=== PATIENT | female | born 1955 | race Caucasian/White ===

== ENCOUNTER → 2020-05-22 12:46 | Outpatient (BNVA) | payer MEDICARE, OTHER, SELFPAY | PROVIDERS: Family Provider Family Medicine; Visit Provider Internal Medicine | DX: Z87.2 Personal history of diseases of the skin and subcutaneous tissue (principal); Z79.899 Other long term (current) drug therapy; Z11.59 Encounter for screening for other viral diseases; Z11.1 Encounter for screening for respiratory tuberculosis; K75.81 Nonalcoholic steatohepatitis (NASH); H53.8 Other visual disturbances | CPT/HCPCS: 80053; 84550; 85025; 85651; 86140; 86431; 86480; 86704; 86803; 86812; 87340; 99203 ==

== ENCOUNTER 2020-05-23 13:00 | Outpatient (CLI) | payer MEDICARE, OTHER, SELFPAY ==
--- NOTE | 2020-05-23 13:10 | XR_ITS ---
WS: [id number] AP hips. HISTORY: Chronic bilateral joint pain. COMPARISON: None. Very mild narrowing and sclerosis involving the hip joints. No fractures or bone destruction. XR/XR hip BI 2V wo/w pel [id number] IMPRESSION: Mild osteoarthritis.
--- NOTE | 2020-05-23 13:10 | XR_ITS ---
WS: [id number] RIGHT HAND: 2 VIEW(S) TECHNIQUE: PA and lateral. HISTORY: hand pain COMPARISON: None available. Mild interphalangeal joint space narrowing. No erosions or subluxation. Mild narrowing of first carpo metacarpal joint. No osteopenia. XR/XR hand RT 2V [id number] IMPRESSION: Mild osteoarthritis.
--- NOTE | 2020-05-23 13:10 | XR_ITS ---
WS: [id number] LEFT HAND: 2 VIEW(S) TECHNIQUE: PA and lateral. HISTORY: hand pain COMPARISON: 10/25/2012 No acute fracture or dislocation. Mild interphalangeal joint space narrowing. Mild arthritis at the first carpometacarpal joint. XR/XR hand LT 2V [id number] IMPRESSION: Mild osteoarthritis with no erosions.
== END 2020-05-23 13:01 | disposition home or self-care (01) ==
LOC: RADWPI 13:10
PROVIDERS: Family Provider Family Medicine; PCP Family Medicine; Visit Provider Internal Medicine
DX: M16.0 Bilateral primary osteoarthritis of hip (principal); M19.042 Primary osteoarthritis, left hand; M19.041 Primary osteoarthritis, right hand
CPT/HCPCS: 73120; 73521

== ENCOUNTER → 2020-06-05 08:33 | Outpatient (BNVA) | payer MEDICARE, OTHER, SELFPAY | PROVIDERS: Family Provider Family Medicine; PCP Family Medicine; Visit Provider Internal Medicine | DX: L40.0 Psoriasis vulgaris (principal); M25.50 Pain in unspecified joint | CPT/HCPCS: 99214 ==

== ENCOUNTER → 2020-07-25 09:33 | Outpatient (BNVA) | payer MEDICARE, OTHER, SELFPAY | PROVIDERS: Family Provider Family Medicine; PCP Family Medicine; Visit Provider Internal Medicine | DX: L40.0 Psoriasis vulgaris (principal); M79.643 Pain in unspecified hand; Z79.899 Other long term (current) drug therapy; K75.81 Nonalcoholic steatohepatitis (NASH) | CPT/HCPCS: 99214 ==

== ENCOUNTER → 2020-10-01 10:37 | Outpatient (BNVA) | payer MEDICARE, OTHER, SELFPAY | PROVIDERS: Family Provider Family Medicine; PCP Family Medicine; Visit Provider Internal Medicine | DX: L40.50 Arthropathic psoriasis, unspecified (principal); L40.0 Psoriasis vulgaris; K75.81 Nonalcoholic steatohepatitis (NASH); M25.50 Pain in unspecified joint; N28.89 Other specified disorders of kidney and ureter | CPT/HCPCS: 99214 ==

== ENCOUNTER → 2020-11-13 14:18 | Outpatient (BNVA) | payer MEDICARE, OTHER, SELFPAY | PROVIDERS: Family Provider Family Medicine; PCP Family Medicine; Visit Provider Internal Medicine | DX: M25.50 Pain in unspecified joint (principal); K75.81 Nonalcoholic steatohepatitis (NASH); L40.0 Psoriasis vulgaris | CPT/HCPCS: 99214 ==

== ENCOUNTER 2020-11-18 09:35 | Outpatient (CLI) | payer MEDICARE, OTHER, SELFPAY ==
[2020-11-18 10:05] LABS: Basophils # 0.1 10^3/uL (0.0-0.1); Basophils % 0.9 %; Eosinophils # 0.3 10^3/uL (0.0-0.8); Eosinophils % 3.5 %; Hematocrit 37.7 % (37.0-47.0); Hemoglobin 12.3 g/dL (11.5-15.3); Lymphocytes # 1.6 10^3/uL (0.8-4.8); Lymphocytes % 18.5 %; Mean Corpuscular HGB Conc 32.6 g/dL (30.0-36.0); Mean Corpuscular Volume 88.9 fL (81-99); Mean Platelet Volume 10.1 fL (7.4-10.4); Monocytes # 0.5 10^3/uL (0.2-0.9); Neutrophils # 5.92 10^3/uL (1.8-7.7); Neutrophils % 69.8 %; Nucleated Red Blood Cells % 0 %; Platelet Count 303 10^3/cmm (130-400); Red Blood Count 4.24 10^6/uL (4.1-5.3); Red Cell Distribution Width 12.5 % (12.1-15.1); White Blood Count 8.5 10^3/uL (4.0-10.0)
[2020-11-18 11:00] LABS: 25 Hydroxy Vitamin D 55 ng/mL (30-100); Alanine Aminotransferase 20 U/L (0-33); Albumin Level 4.5 g/dL (3.5-5.2); Alkaline Phosphatase 125 IU/L (35-105); Anion Gap 12.1 (5-19); Aspartate Amino Transferase 25 U/L (0-32); Blood Urea Nitrogen 18 mg/dL (8-23); Calcium 10.2 mg/dL (8.5-10.5); Carbon Dioxide 29 mmol/L (22-29); Chloride 100 mmol/L (98-107); Globulin 3.6 g/dL (1.3-4.6); Glomerular Filtration Rate 62.6 mL/min (90-130); Glucose 163 mg/dL (65-115); Osmolality Calculated 289 mOsm/kg (285-295); Potassium 4.1 mmol/L (3.5-5.1); Sodium 137 mmol/L (136-145); Total Bilirubin 0.4 mg/dL (0.15-1.2); Total Protein 8.1 g/dL (6.6-8.7)
[2020-11-18 12:20] LABS: Free T4 Free Thyroxine 1.54 ng/dL (0.82-1.77)
[2020-11-18 13:03] LABS: Calcium 9.8 mg/dL (8.5-10.5); Parathyroid Hormone 56.3 pg/mL (15-65)
== END 2020-11-18 09:36 | disposition home or self-care (01) ==
LOC: LAB 09:41
PROVIDERS: Internal Medicine; PCP Family Medicine; Visit Provider Internal Medicine
DX: E03.9 Hypothyroidism, unspecified (principal); E11.65 Type 2 diabetes mellitus with hyperglycemia; M81.0 Age-related osteoporosis without current pathological fracture; Z83.41 Family history of multiple endocrine neoplasia [MEN] syndrome
CPT/HCPCS: 36415; 80053; 82306; 82310; 83970; 84439; 84443; 85025; 99205

== ENCOUNTER 2020-11-21 09:39 | Outpatient (CLI) | payer MEDICARE, OTHER, SELFPAY ==
--- NOTE | 2020-11-21 16:15 | XR_ITS ---
WS: [id number] DEXA (DUAL ENERGY X-RAY ABSORPTIOMETRY) Bone mineral density was performed using a GO-SIM machine. HISTORY: osteoporosis history COMPARISON: None available. Left forearm BMD: 0.769 g/cm2. T score: -1.2 Z score: 0.2 Total hip BMD: Left: 0.889 g/cm2. T score: -0.9 Z score: -0.1 Right: 0.813 g/cm2. T score: -1.5 Z score: -0.7 10 year probability of a major osteoporotic fracture is 34%. XR/XR DEXA axial skeleton* [id number] IMPRESSION: OSTEOPENIA based upon the WHO classification for females.
== END 2020-11-21 09:40 | disposition home or self-care (01) ==
LOC: RADWPI 09:45
PROVIDERS: PCP Family Medicine; Visit Provider Internal Medicine
DX: M81.0 Age-related osteoporosis without current pathological fracture (principal); M85.88 Other specified disorders of bone density and structure, other site
CPT/HCPCS: 77080

== ENCOUNTER 2020-12-08 08:57 | Outpatient (CLI) | payer MEDICARE, OTHER, SELFPAY ==
--- NOTE | 2020-12-08 09:30 | US_ITS ---
WS: [id number] THYROID ULTRASOUND HISTORY: FH of MEN2, assess for nodules COMPARISON: None available. Right lobe: 3.7 cm x 1.2 cm x 1.2 cm. Volume: 2.8 cm3. Small heterogeneous coarse thyroid gland. No discrete nodule identified. No cervical chain adenopathy . Left lobe: 2.9 cm x 1.0 cm x 1.1 cm. Volume: 1.7 cm3. Small Giurgius coarse thyroid gland. No nodules are identified. No significant adenopathy. There are small benign cervical chain lymph nodes. Isthmus: 0.2 cm. US/US thyroid [id number] IMPRESSION: 1. Small coarse heterogeneous thyroid with no nodules. 2. Small cervical chain lymph nodes are negative.
== END 2020-12-08 08:58 | disposition home or self-care (01) ==
PROVIDERS: PCP Family Medicine; Visit Provider Internal Medicine
DX: E04.1 Nontoxic single thyroid nodule (principal); Z83.41 Family history of multiple endocrine neoplasia [MEN] syndrome
CPT/HCPCS: 76536

== ENCOUNTER → 2021-08-25 10:23 | Outpatient (BNVA) | payer MEDICARE, OTHER, SELFPAY | PROVIDERS: PCP Family Medicine; Visit Provider Internal Medicine | DX: E11.65 Type 2 diabetes mellitus with hyperglycemia (principal); M81.0 Age-related osteoporosis without current pathological fracture; E03.9 Hypothyroidism, unspecified; Z83.41 Family history of multiple endocrine neoplasia [MEN] syndrome; Z79.84 Long term (current) use of oral hypoglycemic drugs; Z79.4 Long term (current) use of insulin | CPT/HCPCS: 99214 ==

== ENCOUNTER → 2021-11-20 08:57 | Outpatient (BNVA) | payer MEDICARE, OTHER, SELFPAY | PROVIDERS: PCP Family Medicine; Visit Provider Internal Medicine | DX: E11.9 Type 2 diabetes mellitus without complications (principal); M81.0 Age-related osteoporosis without current pathological fracture; Z83.41 Family history of multiple endocrine neoplasia [MEN] syndrome; E03.9 Hypothyroidism, unspecified; Z79.4 Long term (current) use of insulin | CPT/HCPCS: 99214 ==

== ENCOUNTER 2022-02-24 13:33 | Oncology outpatient (recurring) (ONCR) | payer MEDICARE, OTHER, SELFPAY ==
[2022-02-24 16:45] LABS: Basophils # 0.1 10^3/uL (0.0-0.1); Basophils % 0.5 %; Eosinophils # 0.2 10^3/uL (0.0-0.8); Hematocrit 40.4 % (37.0-47.0); Hemoglobin 13.6 g/dL (11.5-15.3); Lymphocytes # 2.1 10^3/uL (0.8-4.8); Lymphocytes % 19.7 %; Mean Corpuscular HGB Conc 33.7 g/dL (30.0-36.0); Mean Corpuscular Hemoglobin 28.8 pg (28.0-34.0); Mean Corpuscular Volume 85.6 fl (81-99); Mean Platelet Volume 10.7 fL (7.4-10.4); Monocytes # 0.7 10^3/uL (0.2-0.9); Monocytes % 6.4 %; Neutrophils # 7.41 10^3/uL (1.8-7.7); Neutrophils % 70.6 %; Nucleated Red Blood Cells % 0 %; Platelet Count 253 10^3/cmm (130-400); Red Blood Count 4.72 10^6/uL (4.1-5.3); Red Cell Distribution Width 13.3 % (12.1-15.1); White Blood Count 10.5 10^3/uL (4.0-10.0)
[2022-02-24 17:00] LABS: Alanine Aminotransferase 25 U/L (0-33); Albumin Level 4.6 g/dL (3.5-5.2); Alkaline Phosphatase 107 IU/L (35-105); Anion Gap 15.3 (5-19); Aspartate Amino Transferase 26 U/L (0-32); Blood Urea Nitrogen 25 mg/dL (8-23); Calcium 9.2 mg/dL (8.5-10.5); Carbon Dioxide 25 mmol/L (22-29); Chloride 103 mmol/L (98-107); Globulin 2.9 g/dL (1.3-4.6); Glomerular Filtration Rate 49.5 mL/min (90-130); Glucose 131 mg/dL (65-115); Lactate Dehydrogenase 337 U/L (135-214); Osmolality Calculated 294 mOsm/kg (285-295); Potassium 4.3 mmol/L (3.5-5.1); Sodium 139 mmol/L (136-145); Total Bilirubin 0.3 mg/dL (0.15-1.2); Total Protein 7.5 g/dL (6.6-8.7)
[2022-02-24 17:36] LABS: LAB Peripheral Smear Sent for Review
== END 2022-02-24 23:59 | disposition home or self-care (01) ==
PROVIDERS: PCP Family Medicine; Visit Provider Internal Medicine Medical Oncology
DX: R16.1 Splenomegaly, not elsewhere classified (principal); N28.89 Other specified disorders of kidney and ureter; D49.0 Neoplasm of unspecified behavior of digestive system; Z83.41 Family history of multiple endocrine neoplasia [MEN] syndrome
CPT/HCPCS: 36415; 80053; 83615; 85025; 99204

== ENCOUNTER → 2022-03-18 13:53 | Outpatient (BNVA) | payer MEDICARE, OTHER, SELFPAY | PROVIDERS: PCP Family Medicine; Visit Provider Internal Medicine | DX: D49.0 Neoplasm of unspecified behavior of digestive system (principal); E11.9 Type 2 diabetes mellitus without complications; M81.0 Age-related osteoporosis without current pathological fracture; E03.9 Hypothyroidism, unspecified; Z83.41 Family history of multiple endocrine neoplasia [MEN] syndrome; Z79.4 Long term (current) use of insulin | CPT/HCPCS: 99214 ==

== ENCOUNTER 2022-04-01 10:06 | Outpatient (CLI) | payer MEDICARE, OTHER, SELFPAY ==
[2022-04-01 11:20] LABS: Estmated Average Glucose 143; Hemoglobin A1C 6.6 % (4.0-6.0)
[2022-04-01 11:34] LABS: 25 Hydroxy Vitamin D 36 ng/mL (30-100); Alanine Aminotransferase 26 U/L (0-33); Albumin Level 4.6 g/dL (3.5-5.2); Alkaline Phosphatase 121 IU/L (35-105); Anion Gap 16.1 (5-19); Aspartate Amino Transferase 26 U/L (0-32); Blood Urea Nitrogen 25 mg/dL (8-23); Calcium 9.7 mg/dL (8.5-10.5); Carbon Dioxide 24 mmol/L (22-29); Chloride 98 mmol/L (98-107); Chol HDL Ratio 4.37 mg/dL (0.0-4.40); Cholesterol 166 mg/dL (0-200); Globulin 3.2 g/dL (1.3-4.6); Glomerular Filtration Rate 49.5 mL/min (90-130); Glucose 268 mg/dL (65-115); HDL Cholesterol 38 mg/dL (60-100); Osmolality Calculated 292 mOsm/kg (285-295); Potassium 4.1 mmol/L (3.5-5.1); Sodium 134 mmol/L (136-145); Thyroid Stimulating Hormone 8.09 uIU/mL (0.27-4.20); Total Bilirubin 0.5 mg/dL (0.15-1.2); Total Protein 7.8 g/dL (6.6-8.7); Triglycerides 431 mg/dL (0-150)
[2022-04-01 12:45] LABS: LDL Cholesterol Direct 69 mg/dL (0-100)
[2022-04-01 12:52] LABS: Free T4 Free Thyroxine 1.17 ng/dL (0.82-1.77)
== END 2022-04-01 10:07 | disposition home or self-care (01) ==
PROVIDERS: PCP Family Medicine; Visit Provider Internal Medicine
DX: E03.9 Hypothyroidism, unspecified (principal); E11.65 Type 2 diabetes mellitus with hyperglycemia; M81.0 Age-related osteoporosis without current pathological fracture
CPT/HCPCS: 36415; 80053; 80061; 82306; 83036; 83721; 84439; 84443

== ENCOUNTER 2022-05-20 12:53 | Outpatient (CLI) | payer MEDICARE, OTHER, SELFPAY ==
[2022-05-20 14:26] LABS: Estmated Average Glucose 143; Hemoglobin A1C 6.6 % (4.0-6.0)
[2022-05-20 14:33] LABS: Anion Gap 15.2 (5-19); Blood Urea Nitrogen 26 mg/dL (8-23); Calcium 9.6 mg/dL (8.5-10.5); Carbon Dioxide 25 mmol/L (22-29); Chloride 99 mmol/L (98-107); Cholesterol 147 mg/dL (0-200); Free T4 Free Thyroxine 1.61 ng/dL (0.82-1.77); Glomerular Filtration Rate 49.5 mL/min (90-130); Glucose 149 mg/dL (65-115); HDL Cholesterol 30 mg/dL (60-100); Osmolality Calculated 288 mOsm/kg (285-295); Potassium 4.2 mmol/L (3.5-5.1); Sodium 135 mmol/L (136-145); Triglycerides 551 mg/dL (0-150)
[2022-05-20 15:35] LABS: LDL Cholesterol Direct 53 mg/dL (0-100)
[2022-05-26 17:23] LABS: TSH Receptor Binding Antibody <1.00 IU/L (< OR = 2.00)
== END 2022-05-20 12:54 | disposition home or self-care (01) ==
LOC: LAB 12:55
PROVIDERS: PCP Family Medicine; Visit Provider Internal Medicine
DX: E11.9 Type 2 diabetes mellitus without complications (principal); N28.89 Other specified disorders of kidney and ureter
CPT/HCPCS: 80048; 80061; 83036; 83516; 83721; 84439

== ENCOUNTER → 2022-05-24 08:47 | Outpatient (BNVA) | payer MEDICARE, OTHER, SELFPAY | PROVIDERS: PCP Family Medicine; Visit Provider Internal Medicine | DX: M81.0 Age-related osteoporosis without current pathological fracture (principal); E11.9 Type 2 diabetes mellitus without complications; E78.1 Pure hyperglyceridemia; E03.9 Hypothyroidism, unspecified; D49.0 Neoplasm of unspecified behavior of digestive system; L40.0 Psoriasis vulgaris; Z15.89 Genetic susceptibility to other disease; Z83.41 Family history of multiple endocrine neoplasia [MEN] syndrome; Z79.4 Long term (current) use of insulin | CPT/HCPCS: 99214 ==

== ENCOUNTER 2022-06-10 09:38 | Oncology outpatient (recurring) (ONCR) | payer MEDICARE, OTHER, SELFPAY | END 2022-06-11 23:59 | disposition home or self-care (01) | PROVIDERS: PCP Family Medicine; Visit Provider Internal Medicine Medical Oncology | DX: D05.12 Intraductal carcinoma in situ of left breast (principal); Z90.13 Acquired absence of bilateral breasts and nipples; K21.9 Gastro-esophageal reflux disease without esophagitis; M81.0 Age-related osteoporosis without current pathological fracture; N28.89 Other specified disorders of kidney and ureter; D44.7 Neoplasm of uncertain behavior of aortic body and other paraganglia; Z79.899 Other long term (current) drug therapy | CPT/HCPCS: 99214 ==

== ENCOUNTER 2022-06-22 08:36 | Outpatient (CLI) | payer MEDICARE, OTHER, SELFPAY ==
[2022-06-22] MEDS: iohexol 350 mg/mL 100 mL Btl PO (09:57)
--- NOTE | 2022-06-22 10:30 | CT_ITS ---
WS: [id number] CT ABDOMEN AND PELVIS WITH CONTRAST HISTORY: Surveillance for renal mass and for suspected IPMN TECHNIQUE: Imaging performed of the abdomen and pelvis with IV contrast. Single phase imaging of the abdomen. Coronal and sagittal reformats are submitted. All CT scans at [facility] use at [facility] [facility] one of these dose optimization techniques: automated exposure control; mA and/or kV adjustment per patient size (includes targeted exams where dose is matched to clinical indication); or iterative re construction. IV CONTRAST: Omnipaque 350; 95 mL IV. Oral contrast: Yes. DLP: 1243.83 mGy.cm COMPARISON: 03/23/2021 CT and MRIs 11/26/2021 Lower thorax: Lung bases are clear. Heart size is top normal. No hiatal hernia. Liver/biliary system: Normal size with no intrahepatic dilatation. Gallbladder: Normal. No gallstones or wall thickening. No pericholecystic fluid. Pancreas: Normal size pancreas and pancreatic duct. No adjacent inflammation. Previously described po ssible side branch cyst at the pancreatic head and uncinate process is not identified. There is a sma ll gas-filled duodenal diverticulum measuring 9 mm. No pancreatic mass or duct dilatation. Spleen: Normal size spleen. No mass or infarct. Adrenal glands: Normal. Right kidney: Normal size kidney. Reidentified is the enhancing 9 mm exophytic interpolar mass within the RIGHT kidney without increase in size. Suspicious for very small renal cell neoplasm. There is a n additional cortical cyst which is stable measuring 12 mm. Left kidney: Normal size kidney. Several cortical cysts with the largest measuring 16 mm from the int erpolar region. Aorta: Mild atherosclerosis with no aneurysm. Lymphadenopathy: None. Free fluid: None. GI tract: Well-distended stomach. No small bowel obstruction. Moderate diffuse fecal retention and co nstipation. Appendix is normal. There are a few scattered sigmoid diverticula without acute diverticu litis. Abdominal wall: Unremarkable abdominal wall. No hernia. Pelvis: No free fluid or adenopathy within the pelvis. Bones: Unremarkable. CT/CT abdomen pelvis w con* [id number] IMPRESSION: 1. No increase in size of the 9 mm enhancing interpolar RIGHT renal mass, susp icious for renal cell neoplasm. Recommend continued serial follow-up evaluation with contrast. 2. No pancreatic IPMN identified. There is a small gas-distended duodenal dive rticulum near the pancreatic head. 3. Bilateral renal cysts. 4. No adenopathy. 5. Sigmoid diverticulosis without acute diverticulitis.
[2022-06-22] MEDS: iohexol 350 mg/mL 100 mL Btl IV (10:46)
== END 2022-06-22 08:37 | disposition home or self-care (01) ==
LOC: RAD 08:38
PROVIDERS: PCP Family Medicine; Visit Provider Internal Medicine Medical Oncology
DX: N28.89 Other specified disorders of kidney and ureter (principal); K57.30 Diverticulosis of large intestine without perforation or abscess without bleeding
CPT/HCPCS: 74177

== ENCOUNTER → 2022-08-12 08:43 | Outpatient (BNVA) | payer MEDICARE, OTHER, SELFPAY | PROVIDERS: PCP Family Medicine; Visit Provider Internal Medicine | DX: E11.9 Type 2 diabetes mellitus without complications (principal); E78.1 Pure hyperglyceridemia; E03.9 Hypothyroidism, unspecified; M81.0 Age-related osteoporosis without current pathological fracture; Z83.41 Family history of multiple endocrine neoplasia [MEN] syndrome; Z15.89 Genetic susceptibility to other disease; Z79.84 Long term (current) use of oral hypoglycemic drugs | CPT/HCPCS: 99214 ==

== ENCOUNTER 2022-12-09 09:44 | Outpatient (RCR) | payer MEDICARE, SELFPAY | END 2022-12-10 23:59 | disposition home or self-care (01) | LOC: SPT 09:44 | PROVIDERS: PCP Nurse Practitioner Family; Visit Provider Nurse Practitioner Family | DX: N64.4 Mastodynia (principal); Z90.13 Acquired absence of bilateral breasts and nipples; Z85.3 Personal history of malignant neoplasm of breast | CPT/HCPCS: 97162 ==

== ENCOUNTER 2022-12-22 12:48 | Oncology outpatient (recurring) (ONCR) | payer MEDICARE, SELFPAY ==
[2022-12-22 13:43] LABS: Estmated Average Glucose 154
[2022-12-22 13:51] LABS: Alanine Aminotransferase 21 U/L (0-33); Albumin Level 4.3 g/dL (3.5-5.2); Alkaline Phosphatase 102 U/L (35-105); Anion Gap 15.9 (5-19); Aspartate Amino Transferase 25 U/L (0-32); Blood Urea Nitrogen 27 mg/dL (8-23); Calcium 9.5 mg/dL (8.5-10.5); Carbon Dioxide 23 mmol/L (22-29); Chloride 103 mmol/L (98-107); Cholesterol 160 mg/dL (0-200); Globulin 3.2 g/dL (1.3-4.6); Glomerular Filtration Rate 55.1 mL/min (90-130); Glucose 106 mg/dL (65-115); HDL Cholesterol 40 mg/dL (60-100); LDL Cholesterol Calculated 61 mg/dL (50-129); LDL HDL Ratio 1.53 RATIO (0.00-3.22); Osmolality Calculated 292 mOsm/kg (285-295); Potassium 3.9 mmol/L (3.5-5.1); Sodium 138 mmol/L (136-145); Total Bilirubin 0.5 mg/dL (0.15-1.2); Total Protein 7.5 g/dL (6.6-8.7); Triglycerides 293 mg/dL (0-150)
[2022-12-22 15:13] LABS: Basophils # 0.1 10^3/uL (0.0-0.1); Basophils % 0.7 %; Eosinophils # 0.3 10^3/uL (0.0-0.8); Eosinophils % 3.5 %; Lymphocytes # 2.3 10^3/uL (0.8-4.8); Lymphocytes % 24.9 %; Mean Corpuscular HGB Conc 33.3 g/dL (30.0-36.0); Mean Corpuscular Hemoglobin 28.4 pg (28.0-34.0); Mean Corpuscular Volume 85.2 fl (81-99); Mean Platelet Volume 11.3 fL (7.4-10.4); Monocytes # 0.7 10^3/uL (0.2-0.9); Monocytes % 7.9 %; Neutrophils # 5.75 10^3/uL (1.8-7.7); Neutrophils % 61.4 %; Nucleated Red Blood Cells % 0 %; Platelet Count 275 10^3/cmm (130-400); Red Blood Count 4.93 10^6/uL (4.1-5.3); Red Cell Distribution Width 13.6 % (12.1-15.1); White Blood Count 9.4 10^3/uL (4.0-10.0)
[2022-12-22 15:20] LABS: Erythrocyte Sedimentation Rate 24 mm/hr (0-15)
[2022-12-22 15:55] LABS: LAB Peripheral Smear Sent for Review
[2022-12-23 11:46] LABS: Free T4 Free Thyroxine 1.56 ng/dL (0.82-1.77); Thyroid Stimulating Hormone 3.19 uIU/mL (0.27-4.20)
== END 2023-01-09 23:59 | disposition home or self-care (01) ==
PROVIDERS: Internal Medicine; PCP Nurse Practitioner Family; Visit Provider Internal Medicine Medical Oncology
DX: Z08 Encounter for follow-up examination after completed treatment for malignant neoplasm (principal); Z85.3 Personal history of malignant neoplasm of breast; Z15.89 Genetic susceptibility to other disease; Z90.12 Acquired absence of left breast and nipple; N28.89 Other specified disorders of kidney and ureter; D72.829 Elevated white blood cell count, unspecified; R79.89 Other specified abnormal findings of blood chemistry
CPT/HCPCS: 36415; 80053; 80061; 83036; 84439; 84443; 85025; 85651; 99214

== ENCOUNTER → 2022-12-23 10:37 | Outpatient (BNVA) | payer MEDICARE, SELFPAY | PROVIDERS: PCP Nurse Practitioner Family; Visit Provider Internal Medicine | DX: E11.9 Type 2 diabetes mellitus without complications (principal); E78.1 Pure hyperglyceridemia; E03.9 Hypothyroidism, unspecified; M81.0 Age-related osteoporosis without current pathological fracture; D44.7 Neoplasm of uncertain behavior of aortic body and other paraganglia; D35.00 Benign neoplasm of unspecified adrenal gland; Z15.89 Genetic susceptibility to other disease; Z83.41 Family history of multiple endocrine neoplasia [MEN] syndrome; Z79.890 Hormone replacement therapy; Z79.4 Long term (current) use of insulin; Z79.84 Long term (current) use of oral hypoglycemic drugs | CPT/HCPCS: 99214 ==

== ENCOUNTER 2023-01-11 08:07 | Outpatient (CLI) | payer MEDICARE, SELFPAY ==
--- NOTE | 2023-01-11 08:30 | CT_ITS ---
WS: [id number] CT ABDOMEN AND PELVIS NONCONTRAST HISTORY: renal mass surveillance TECHNIQUE: Imaging performed through the abdomen and pelvis. Coronal and sagittal reformats are submi tted. All CT scans at [facility] use at least one of these dose optimization techniques: auto mated exposure control; mA and/or kV adjustment per patient size (includes targeted exams where dose is matched to clinical indication); or iterative reconstruction. DLP: 616.07 mGy.cm COMPARISON: 06/22/2022, MRI abdomen 11/26/2021 Lower thorax: Mild cardiomegaly. Small hiatal hernia. Liver: Mild hepatomegaly and hepatic steatosis. No bile duct dilatation or mass. Gallbladder: Normal gallbladder. No pericholecystic fluid or cholelithiasis. No gallbladder wall thic kening. Pancreas: Normal size pancreas. Previously described cystic lesion in the uncinate process is difficu lt to visualize by unenhanced CT. There is a 3.5 mm low-attenuation nodule which may be the reference lesion. This cyst unchanged since the prior study. Spleen: Normal. Adrenal glands: Normal. No mass. Right kidney: Prominent extrarenal pelvis. Again noted is a slightly bulging contour laterally of the RIGHT kidney. 7 mm mildly hyperattenuating nodule is the reference lesion which enhances by MRI. Not significantly changed in size. There is an additional cyst measuring approximately 12 mm. Left kidney: Extrarenal pelvis. Low-attenuation 15 mm mass in the mid kidney. Noted to be a cyst on p rior imaging studies. Aorta: Mild atherosclerosis abdominal aorta with no aneurysm. No free fluid, intraperitoneal air or significant lymphadenopathy. GI tract: Nondistended stomach. No small bowel obstruction. Mild diffuse constipation. Normal appendi x. Mild sigmoid diverticulosis. No evidence for acute diverticulitis. Abdominal wall: Small umbilical hernia contains fat only. Pelvis: Prior hysterectomy. No free fluid or adenopathy. Osseous structures: Unremarkable. Dorsal column stimulator electrodes thoracic spine. CT/CT abdomen pelvis wo con [id number] IMPRESSION: 1. By unenhanced CT there has been no increase in size of the solid mass RIGHT kidney measuring 7 mm. By prior MRI thought to be an early renal cell neoplasm . By diameter no increase in size. 2. Additional cysts within each kidney. 3. Hepatomegaly and hepatic steatosis. 4. Normal appendix. 5. No adenopathy. 6. Prior hysterectomy. 7. Small cyst within the uncinate process described by MRI. Very difficult to visualize by CT but does appear unchanged.
== END 2023-01-11 08:08 | disposition home or self-care (01) ==
LOC: RAD 08:10
PROVIDERS: PCP Nurse Practitioner Family; Visit Provider Internal Medicine Medical Oncology
DX: N28.89 Other specified disorders of kidney and ureter (principal); N28.1 Cyst of kidney, acquired; R16.0 Hepatomegaly, not elsewhere classified; K76.0 Fatty (change of) liver, not elsewhere classified; Z90.710 Acquired absence of both cervix and uterus
CPT/HCPCS: 74176

== ENCOUNTER 2023-01-22 05:32 | Outpatient (CLI) | payer MEDICARE, SELFPAY ==
--- NOTE | 2023-01-22 08:04 | PETR_ITS ---
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 Then, PET images were obtained. Attenuation corrected images were constructed using the CT scan. Fused images of PET and CT were reviewed. The standardized uptake values (SUV) reported below are maximum values within a region of interest, expressed in gm/ml. Exam includes the whole body. Radiopharmaceutical: 10.59 mCi F-18 FDG (Fluorodeoxyglucose), IV. Time of imaging post radiopharmaceutical administration: 1 hour Injection site: right AC COMPARISON: CT abdomen pelvis wo con [id number] 01/11/2023 8:15 AM FINDINGS: Tubes, catheters and devices: Thoracic nerve stimulator is in place. Brain: Visualized brain has normal physiologic uptake. Pharynx: No abnormal uptake. Larynx: No abnormal uptake. Lungs, pleura and trachea: No abnormal uptake. Heart: Cardiomegaly. Aortic valve replacement. Mediastinal space: No abnormal uptake. Liver: Hepatic steatosis. Gallbladder and bile ducts: No abnormal uptake. Pancreas: No abnormal uptake. Spleen: No abnormal uptake. Adrenal glands: No abnormal uptake. Kidneys and ureters: Small bilateral renal cysts. A solid appearing small right renal lesion was better characterized on prior CT. There is no increased FDG uptake. Stomach and bowel: No abnormal uptake. Reproductive: Hysterectomy. Vasculature: No abnormal uptake. Lymph nodes: No abnormal uptake. No lymphadenopathy in the head, neck, chest, abdomen, pelvis, and extremities. Bones/joints: Some focal uptake about the right shoulder is favored to be degenerative (SUV max 7.4). Soft tissues: No abnormal uptake in the visualized head, neck, chest, abdomen, pelvis, and extremities. PET/PET WB melanoma INITIAL [id number] IMPRESSION: 1. No definite abnormal uptake to suggest malignancy is identified. 2. A solid appearing small right renal lesion was better characterized on prior CT. There is no increased FDG uptake. Renal neoplasm remains a consideration, as these typically have low FDG avidity.
== END 2023-01-22 05:33 | disposition home or self-care (01) ==
LOC: RAD 01-24 05:32
PROVIDERS: PCP Nurse Practitioner Family; Visit Provider Internal Medicine
DX: D35.00 Benign neoplasm of unspecified adrenal gland (principal); D44.7 Neoplasm of uncertain behavior of aortic body and other paraganglia
CPT/HCPCS: 78816; A9552

== ENCOUNTER 2023-03-30 14:53 | Oncology outpatient (recurring) (ONCR) | payer MEDICARE, SELFPAY | END 2023-04-11 23:59 | disposition home or self-care (01) | PROVIDERS: PCP Nurse Practitioner Family; Visit Provider Internal Medicine Medical Oncology | DX: D05.12 Intraductal carcinoma in situ of left breast (principal); Z17.0 Estrogen receptor positive status [ER+]; Z90.13 Acquired absence of bilateral breasts and nipples; N28.89 Other specified disorders of kidney and ureter | CPT/HCPCS: 99214 ==

== ENCOUNTER 2023-04-05 08:15 | Outpatient (CLI) | payer MEDICARE, SELFPAY ==
[2023-04-05 08:54] LABS: Urine Creatinine 83 mg/dL (28-217)
[2023-04-05 10:06] LABS: Total Volume Urine 1500 ml
[2023-04-09 23:10] LABS: Calculated Total (E+NE) 56 mcg/24 h (26-121)
== END 2023-04-05 08:16 | disposition home or self-care (01) ==
LOC: LAB 08:19
PROVIDERS: PCP Nurse Practitioner Family; Visit Provider Internal Medicine
DX: E78.1 Pure hyperglyceridemia (principal)
CPT/HCPCS: 82384; 82570

== ENCOUNTER 2023-04-07 08:42 | Outpatient (CLI) | payer MEDICARE, SELFPAY ==
[2023-04-07 09:25] LABS: Estmated Average Glucose 140; Hemoglobin A1C 6.5 % (4.0-6.0)
[2023-04-07 09:30] LABS: Creatinine Urine, Random 157 mg/dL (28-217); Microalbum Creatinine Ratio Ur 6 mg/dL (0-20); Microalbumin Random Urine 1 ug/dL (0-20)
[2023-04-07 09:48] LABS: Alanine Aminotransferase 27 U/L (0-33); Albumin Level 4.5 g/dL (3.5-5.2); Alkaline Phosphatase 126 U/L (35-105); Anion Gap 16.2 (5-19); Aspartate Amino Transferase 28 U/L (0-32); Blood Urea Nitrogen 19 mg/dL (8-23); Calcium 9.5 mg/dL (8.5-10.5); Carbon Dioxide 25 mmol/L (22-29); Chloride 100 mmol/L (98-107); Chol HDL Ratio 4.37 mg/dL (0.0-4.40); Cholesterol 166 mg/dL (0-200); Free T4 Free Thyroxine 1.18 ng/dL (0.82-1.77); Glomerular Filtration Rate 55.1 mL/min (90-130); Glucose 166 mg/dL (65-115); HDL Cholesterol 38 mg/dL (60-100); LDL Cholesterol Calculated 59 mg/dL (50-129); LDL HDL Ratio 1.55 RATIO (0.00-3.22); Osmolality Calculated 290 mOsm/kg (285-295); Potassium 4.2 mmol/L (3.5-5.1); Sodium 137 mmol/L (136-145); Thyroid Stimulating Hormone 4.91 uIU/mL (0.27-4.20); Total Bilirubin 0.5 mg/dL (0.15-1.2); Total Protein 7.5 g/dL (6.6-8.7); Triglycerides 347 mg/dL (0-150)
[2023-04-08 10:25] LABS: T3 Total 86 ng/dL (76-181)
== END 2023-04-07 08:43 | disposition home or self-care (01) ==
LOC: LAB 08:45
PROVIDERS: PCP Nurse Practitioner Family; Visit Provider Internal Medicine
DX: E11.9 Type 2 diabetes mellitus without complications (principal); E03.9 Hypothyroidism, unspecified
CPT/HCPCS: 36415; 80053; 80061; 82044; 83036; 84439; 84443; 84480

== ENCOUNTER → 2023-04-08 09:03 | Outpatient (BNVA) | payer MEDICARE, SELFPAY | PROVIDERS: PCP Nurse Practitioner Family; Visit Provider Internal Medicine | DX: E11.9 Type 2 diabetes mellitus without complications (principal); E03.9 Hypothyroidism, unspecified; E78.1 Pure hyperglyceridemia; Z15.89 Genetic susceptibility to other disease; M81.0 Age-related osteoporosis without current pathological fracture; Z83.41 Family history of multiple endocrine neoplasia [MEN] syndrome; Z79.890 Hormone replacement therapy; Z79.4 Long term (current) use of insulin | CPT/HCPCS: 99214 ==

== ENCOUNTER 2023-06-01 09:45 | Outpatient (CLI) | payer MEDICARE, SELFPAY ==
[2023-06-01 10:41] LABS: Estmated Average Glucose 146; Hemoglobin A1C 6.7 % (4.0-6.0)
[2023-06-01 10:43] LABS: Creatinine Urine, Random 256 mg/dL (28-217); Microalbum Creatinine Ratio Ur 31 mg/dL (0-20); Microalbumin Random Urine 8 ug/dL (0-20)
[2023-06-01 10:48] LABS: Alanine Aminotransferase 35 U/L (0-33); Albumin Level 4.7 g/dL (3.5-5.2); Alkaline Phosphatase 133 U/L (35-105); Anion Gap 16.1 (5-19); Aspartate Amino Transferase 35 U/L (0-32); Blood Urea Nitrogen 21 mg/dL (8-23); Calcium 9.5 mg/dL (8.5-10.5); Carbon Dioxide 23 mmol/L (22-29); Chloride 102 mmol/L (98-107); Free T4 Free Thyroxine 1.37 ng/dL (0.82-1.77); Glomerular Filtration Rate 55.1 mL/min (90-130); Glucose 189 mg/dL (65-115); Osmolality Calculated 292 mOsm/kg (285-295); Potassium 4.1 mmol/L (3.5-5.1); Sodium 137 mmol/L (136-145); Thyroid Stimulating Hormone 6.04 uIU/mL (0.27-4.20); Total Bilirubin 0.6 mg/dL (0.15-1.2); Total Protein 7.7 g/dL (6.6-8.7)
== END 2023-06-01 09:46 | disposition home or self-care (01) ==
PROVIDERS: PCP Nurse Practitioner Family; Visit Provider Internal Medicine
DX: E11.9 Type 2 diabetes mellitus without complications (principal); E78.1 Pure hyperglyceridemia; E03.9 Hypothyroidism, unspecified; M81.0 Age-related osteoporosis without current pathological fracture; Z83.41 Family history of multiple endocrine neoplasia [MEN] syndrome; Z15.89 Genetic susceptibility to other disease; Z79.890 Hormone replacement therapy; Z79.4 Long term (current) use of insulin; Z79.84 Long term (current) use of oral hypoglycemic drugs
CPT/HCPCS: 36415; 80053; 82044; 83036; 84439; 84443; 99214

== ENCOUNTER 2023-07-13 13:05 | Outpatient (CLI) | payer MEDICARE, SELFPAY ==
--- NOTE | 2023-07-13 14:00 | CTR_ITS ---
PROCEDURE INFORMATION: Exam: CT Abdomen And Pelvis Without Contrast Exam date and time: 07/13/2023 1:16 PM Age: 67 years old Clinical indication: Condition or disease; Kidney or ureter condition; Other: Mass on RT kidney; Primary cancer: Breast cancer; Prior surgery; Surgery date: 6+ months; Surgery type: Bilat breast, hyst stimulator; Additional info: 6 month follow up.No history of trauma or recent surgery is provided. TECHNIQUE: Imaging protocol: Computed tomography of the abdomen and pelvis without contrast. 310image(s) are provided. Radiation optimization: All CT scans at this facility use at least one of these dose optimization techniques: automated exposure control; mA and/or kV adjustment per patient size (includes targeted exams where dose is matched to clinical indication); or iterative reconstruction. Other technique: Axial images are available with sagittal and coronal reconstruction views. Automated dose exposure control is utilized. The DLP is 681.93. REPORTING DATA: Count of CT and Cardiac NM exams in prior 12 months: This patient has received 2 known CTs and 0 known cardiac nuclear medicine studies in the 12 months prior to the current study. COMPARISON: 1. PT PET WB melanoma INITIAL [id number] 01/22/2023 8:[address] abdomen pelvis wo con [id number] 01/11/2023 8:[address] abdomen pelvis w con* [id number] 06/22/2022 10:33 AM 4. MR abdomen wo con [id number] 11/26/2021 7:56 AM RADIATION DOSE METRICS: Total DLP (mGy-cm): 681.93 FINDINGS: Tubes, catheters and devices: There are some spinal stimulator type wires present. Lungs: No lobar consolidation is appreciated. There is some subsegmental atelectasis versus post inflammatory similar reticulonodular scarring demonstrated. Heart: No significant pericardial fluid collection is appreciated. Coronary arteries: There appear to be some coronary arterial calcifications. Diaphragm: There is slight asymmetric right hemidiaphragm elevation. Liver: There appears to be some diffuse hepatic steatosis with some sparing for example about the gallbladder fossa. Gallbladder and bile ducts: The gallbladder appears slightly contracted with trace sludge. Pancreas: No pancreatic ductal dilatation or calculus is currently appreciated. The previously described pancreatic areas of cystic related change or less conspicuous currently. Spleen: The spleen is borderline in size. There are some granulomatous changes. Adrenal glands: Unremarkable in the interval. Kidneys and ureters: No radiopaque obstructive calculus or hydronephrosis appreciated. There are some extrarenal pelves present bilaterally. There is subtle cortical lobulation with similar overall appearance of the right renal clinical area of question laterally predominant. This focus measures approximately 8.5 mm in transverse diameter similar overall. There is some fluid attenuation cystic focus about the left midpole of about 1.5 cm similar overall. Stomach and bowel: Some aspects of the colon are undistended. This may also be peristaltic related.There is abundant stool present limiting mucosal detail evaluation.The bowel gas pattern appears nonobstructive. There is a small sliding-type hiatal hernia demonstrated with slight gastroesophageal fold thickening. There appears to be some duodenal C-loop diverticular averaging. There is some mild colonic diverticulosis demonstrated. Appendix: No evidence of appendicitis. Intraperitoneal space: No free air or free fluid collections are appreciated. Vasculature: No interval aortic aneurysmal dilatation is appreciated with chronic atherosclerotic as well as branch vessel atherosclerotic change. There are aortic root interventional type changes present as well as some mitral apparatus calcifications. Lymph nodes: There are subcentimeter predominant para-aortic and mesenteric lymph nodes overall present. Urinary bladder: The bladder is incompletely fluid filled for evaluation which may exagerate the wall thickness. This can also be seen with post inflammation sequela. Reproductive: There are hysterectomy changes present. Bones/joints: Osseous alignment is maintained.No interval displaced fracture or dislocation is appreciated. There is some chronic appearing undulation of the sacrococcygeal junction which may be developmental versus previous injury. There is some mild chronic degenerative changes of the lumbar spine similar overall. There are some chronic appearing rib deformities present. Soft tissues: No radiopaque foreign body or subcutaneous emphysema is appreciated. Other findings: There is some motion artifact present. No other significant interval changes are appreciated. CT/CT abdomen pelvis wo con [id number] IMPRESSION: There is a stable CT abdominal appearance overall as compared to the previous study including the areas of possible cystic and cortical lobulation of the kidneys. As a continued surveillance mechanism for the pancreas and kidneys consider MRI of the abdomen with and without contrast.
== END 2023-07-13 13:06 | disposition home or self-care (01) ==
PROVIDERS: PCP Nurse Practitioner Family; Visit Provider Nurse Practitioner Family
DX: D05.12 Intraductal carcinoma in situ of left breast (principal); N28.89 Other specified disorders of kidney and ureter; R16.1 Splenomegaly, not elsewhere classified
CPT/HCPCS: 74176

== ENCOUNTER 2023-07-25 09:17 | Oncology outpatient (recurring) (ONCR) | payer MEDICARE, SELFPAY ==
[2023-07-25 09:30] VITALS: BP 123/75; PULSE 73; RESP 16; TEMP 36.4; O2SAT 94
[2023-07-25 09:55] LABS: Basophils # 0.1 10^3/uL (0.0-0.1); Basophils % 0.7 %; Eosinophils # 0.3 10^3/uL (0.0-0.8); Eosinophils % 3.3 %; Hematocrit 39.3 % (36-47); Lymphocytes # 1.9 10^3/uL (0.8-4.8); Lymphocytes % 21.5 %; Mean Corpuscular HGB Conc 33.8 g/dL (30-55); Mean Corpuscular Volume 88.5 fl (85-98); Mean Platelet Volume 10.6 fL (7.4-10.4); Monocytes # 0.6 10^3/uL (0.2-0.9); Monocytes % 7.1 %; Neutrophils # 5.71 10^3/uL (1.8-7.7); Neutrophils % 65.9 %; Nucleated Red Blood Cells % 0 %; Platelet Count 249 10^3/cmm (157-399); Red Blood Count 4.44 10^6/uL (3.85-5.65); Red Cell Distribution Width 12.5 % (12.1-15.1); White Blood Count 8.68 10^3/uL (3.29-11.43)
[2023-07-25 10:17] LABS: Alanine Aminotransferase 33 U/L (0-33); Albumin Level 4.5 g/dL (3.5-5.2); Alkaline Phosphatase 125 U/L (35-105); Anion Gap 14.1 (5-19); Aspartate Amino Transferase 33 U/L (0-32); Blood Urea Nitrogen 22 mg/dL (8-23); Calcium 9.3 mg/dL (8.5-10.5); Carbon Dioxide 25 mmol/L (22-29); Chloride 104 mmol/L (98-107); Globulin 2.8 g/dL (1.3-4.6); Glomerular Filtration Rate 55.1 mL/min (90-130); Glucose 263 mg/dL (65-115); Osmolality Calculated 300 mOsm/kg (285-295); Potassium 4.1 mmol/L (3.5-5.1); Sodium 139 mmol/L (136-145); Total Bilirubin 0.4 mg/dL (0.15-1.2); Total Protein 7.3 g/dL (6.6-8.7)
== END 2023-08-11 23:59 | disposition home or self-care (01) ==
PROVIDERS: Nurse Practitioner Family; PCP Nurse Practitioner Family; Visit Provider Internal Medicine Medical Oncology
DX: D05.12 Intraductal carcinoma in situ of left breast (principal); D72.829 Elevated white blood cell count, unspecified; N28.89 Other specified disorders of kidney and ureter; Z79.899 Other long term (current) drug therapy
CPT/HCPCS: 36415; 80053; 85025; 99213

== ENCOUNTER 2023-08-31 07:46 | Outpatient (CLI) | payer MEDICARE, SELFPAY ==
[2023-08-31 08:29] LABS: Creatinine Urine, Random 171 mg/dL (28-217); Microalbum Creatinine Ratio Ur 12 mg/dL (0-20); Microalbumin Random Urine 2 ug/dL (0-20)
[2023-08-31 08:32] LABS: Alanine Aminotransferase 29 U/L (0-33); Albumin Level 4.6 g/dL (3.5-5.2); Alkaline Phosphatase 127 U/L (35-105); Anion Gap 13.1 (5-19); Aspartate Amino Transferase 28 U/L (0-32); Blood Urea Nitrogen 18 mg/dL (8-23); Calcium 10.1 mg/dL (8.5-10.5); Carbon Dioxide 27 mmol/L (22-29); Chloride 102 mmol/L (98-107); Chol HDL Ratio 4.12 mg/dL (0.0-4.40); Cholesterol 136 mg/dL (0-200); Free T4 Free Thyroxine 1.22 ng/dL (0.82-1.77); Glomerular Filtration Rate 62.3 mL/min (90-130); Glucose 204 mg/dL (65-115); HDL Cholesterol 33 mg/dL (60-100); LDL Cholesterol Calculated 49 mg/dL (50-129); LDL HDL Ratio 1.48 RATIO (0.00-3.22); Osmolality Calculated 294 mOsm/kg (285-295); Potassium 4.1 mmol/L (3.5-5.1); Sodium 138 mmol/L (136-145); Thyroid Stimulating Hormone 3.94 uIU/mL (0.27-4.20); Total Bilirubin 0.4 mg/dL (0.15-1.2); Total Protein 7.6 g/dL (6.6-8.7); Triglycerides 268 mg/dL (0-150)
[2023-08-31 08:35] LABS: Estmated Average Glucose 169; Hemoglobin A1C 7.5 % (4.0-6.0)
== END 2023-08-31 07:47 | disposition home or self-care (01) ==
LOC: LAB 07:47
PROVIDERS: PCP Nurse Practitioner Family; Visit Provider Internal Medicine
DX: E11.9 Type 2 diabetes mellitus without complications (principal); E78.1 Pure hyperglyceridemia; E03.9 Hypothyroidism, unspecified; Z15.89 Genetic susceptibility to other disease; M81.0 Age-related osteoporosis without current pathological fracture; Z83.41 Family history of multiple endocrine neoplasia [MEN] syndrome
CPT/HCPCS: 80053; 80061; 82044; 83036; 84439; 84443

== ENCOUNTER → 2023-09-02 08:26 | Outpatient (BNVA) | payer MEDICARE, SELFPAY | PROVIDERS: PCP Nurse Practitioner Family; Visit Provider Internal Medicine | DX: E11.9 Type 2 diabetes mellitus without complications (principal); E78.1 Pure hyperglyceridemia; E03.9 Hypothyroidism, unspecified; Z15.89 Genetic susceptibility to other disease; M81.0 Age-related osteoporosis without current pathological fracture; Z83.41 Family history of multiple endocrine neoplasia [MEN] syndrome; L40.0 Psoriasis vulgaris | CPT/HCPCS: 99214 ==

== ENCOUNTER 2024-01-12 07:21 | Outpatient (CLI) | payer MEDICARE, SELFPAY ==
[2024-01-12 08:09] LABS: Creatinine Urine, Random 165 mg/dL (28-217); Microalbum Creatinine Ratio Ur 30 mg/dL (0-20); Microalbumin Random Urine 5 ug/dL (0-20)
[2024-01-12 08:12] LABS: Alanine Aminotransferase 24 U/L (0-33); Albumin Level 3.9 g/dL (3.5-5.2); Alkaline Phosphatase 121 U/L (35-105); Anion Gap 15.1 (5-19); Aspartate Amino Transferase 24 U/L (0-32); Blood Urea Nitrogen 16 mg/dL (8-23); Calcium 8.9 mg/dL (8.5-10.5); Carbon Dioxide 24 mmol/L (22-29); Chloride 101 mmol/L (98-107); Chol HDL Ratio 3.56 mg/dL (0.0-4.40); Cholesterol 121 mg/dL (0-200); Free T4 Free Thyroxine 1.14 ng/dL (0.82-1.77); Glomerular Filtration Rate 62.1 mL/min (90-130); Glucose 260 mg/dL (65-115); HDL Cholesterol 34 mg/dL (60-100); LDL Cholesterol Calculated 38 mg/dL (50-129); LDL HDL Ratio 1.12 RATIO (0.00-3.22); Osmolality Calculated 292 mOsm/kg (285-295); Potassium 4.1 mmol/L (3.5-5.1); Sodium 136 mmol/L (136-145); Thyroid Stimulating Hormone 8.28 uIU/mL (0.27-4.20); Total Bilirubin 0.5 mg/dL (0.15-1.2); Total Protein 6.9 g/dL (6.6-8.7); Triglycerides 245 mg/dL (0-150)
[2024-01-12 08:30] LABS: Estmated Average Glucose 180; Hemoglobin A1C 7.9 % (4.0-6.0)
[2024-01-12 08:46] LABS: 25 Hydroxy Vitamin D 27 ng/mL (30-100)
== END 2024-01-12 07:22 | disposition home or self-care (01) ==
LOC: LAB 07:24
PROVIDERS: PCP Nurse Practitioner Family; Visit Provider Internal Medicine
DX: L40.0 Psoriasis vulgaris (principal); E11.9 Type 2 diabetes mellitus without complications; E78.1 Pure hyperglyceridemia; E03.9 Hypothyroidism, unspecified
CPT/HCPCS: 36415; 80053; 80061; 82044; 82306; 83036; 84439; 84443

== ENCOUNTER → 2024-01-20 09:55 | Outpatient (BNVA) | payer MEDICARE, SELFPAY | PROVIDERS: PCP Nurse Practitioner Family; Visit Provider Internal Medicine | DX: E11.9 Type 2 diabetes mellitus without complications (principal); E78.1 Pure hyperglyceridemia; M81.0 Age-related osteoporosis without current pathological fracture; L40.0 Psoriasis vulgaris; B35.1 Tinea unguium; E03.9 Hypothyroidism, unspecified; Z15.89 Genetic susceptibility to other disease; Z83.41 Family history of multiple endocrine neoplasia [MEN] syndrome; Z79.4 Long term (current) use of insulin; Z79.84 Long term (current) use of oral hypoglycemic drugs | CPT/HCPCS: 99214 ==

== ENCOUNTER → 2024-01-25 14:22 | Outpatient (BNVA) | payer MEDICARE, SELFPAY | PROVIDERS: PCP Nurse Practitioner Family; Visit Provider Podiatrist Foot & Ankle Surgery | DX: L60.3 Nail dystrophy (principal); E11.65 Type 2 diabetes mellitus with hyperglycemia; G62.9 Polyneuropathy, unspecified; Z79.4 Long term (current) use of insulin | CPT/HCPCS: 99203 ==

== ENCOUNTER 2024-02-27 08:43 | Oncology outpatient (recurring) (ONCR) | payer MEDICARE, SELFPAY ==
[2024-02-27 09:15] LABS: Basophils # 0.1 10^3/uL (0.0-0.1); Basophils % 0.6 %; Eosinophils # 0.2 10^3/uL (0.0-0.8); Eosinophils % 2.8 %; Hematocrit 39.5 % (36-47); Lymphocytes # 1.8 10^3/uL (0.8-4.8); Lymphocytes % 22.1 %; Mean Corpuscular HGB Conc 34.4 g/dL (30-55); Mean Corpuscular Hemoglobin 30.6 pg (27-33); Mean Corpuscular Volume 88.8 fl (85-98); Mean Platelet Volume 10.7 fL (7.4-10.4); Monocytes # 0.6 10^3/uL (0.2-0.9); Monocytes % 7.7 %; Neutrophils # 5.44 10^3/uL (1.8-7.7); Neutrophils % 65.8 %; Nucleated Red Blood Cells % 0 %; Platelet Count 232 10^3/cmm (157-399); Red Blood Count 4.45 10^6/uL (3.85-5.65); Red Cell Distribution Width 12.7 % (12.1-15.1); White Blood Count 8.27 10^3/uL (3.29-11.43)
[2024-02-27 09:35] LABS: Alanine Aminotransferase 32 U/L (0-33); Albumin Level 4.3 g/dL (3.5-5.2); Alkaline Phosphatase 130 U/L (35-105); Anion Gap 15.3 (5-19); Aspartate Amino Transferase 33 U/L (0-32); Blood Urea Nitrogen 25 mg/dL (8-23); Calcium 9.2 mg/dL (8.5-10.5); Carbon Dioxide 23 mmol/L (22-29); Chloride 105 mmol/L (98-107); Globulin 3.2 g/dL (1.3-4.6); Glucose 211 mg/dL (65-115); Osmolality Calculated 299 mOsm/kg (285-295); Potassium 4.3 mmol/L (3.5-5.1); Sodium 139 mmol/L (136-145); Total Bilirubin 0.4 mg/dL (0.15-1.2); Total Protein 7.5 g/dL (6.6-8.7)
== END 2024-03-11 23:59 | disposition home or self-care (01) ==
PROVIDERS: Nurse Practitioner Family; PCP Nurse Practitioner Family; Visit Provider Internal Medicine Medical Oncology
DX: D05.12 Intraductal carcinoma in situ of left breast (principal); D72.829 Elevated white blood cell count, unspecified; N28.89 Other specified disorders of kidney and ureter
CPT/HCPCS: 36415; 80053; 85025; 99214

== ENCOUNTER → 2024-04-02 08:53 | Outpatient (BNVA) | payer MEDICARE, SELFPAY | PROVIDERS: PCP Nurse Practitioner Family; Visit Provider Podiatrist Foot & Ankle Surgery | DX: L85.3 Xerosis cutis (principal); L60.3 Nail dystrophy; E11.65 Type 2 diabetes mellitus with hyperglycemia; G62.9 Polyneuropathy, unspecified; L84 Corns and callosities; Z79.4 Long term (current) use of insulin | CPT/HCPCS: 11055; 11721; 99213 ==

== ENCOUNTER 2024-04-13 09:09 | Outpatient (CLI) | payer MEDICARE, SELFPAY ==
[2024-04-13 09:59] LABS: Estmated Average Glucose 174; Hemoglobin A1C 7.7 % (4.0-6.0)
[2024-04-13 10:12] LABS: Alanine Aminotransferase 26 U/L (0-33); Albumin Level 4.4 g/dL (3.5-5.2); Alkaline Phosphatase 147 U/L (35-105); Aspartate Amino Transferase 29 U/L (0-32); Blood Urea Nitrogen 20 mg/dL (8-23); Calcium 9.6 mg/dL (8.5-10.5); Carbon Dioxide 25 mmol/L (22-29); Chloride 101 mmol/L (98-107); Chol HDL Ratio 4.13 mg/dL (0.0-4.40); Cholesterol 132 mg/dL (0-200); Globulin 3.5 g/dL (1.3-4.6); Glucose 174 mg/dL (65-115); HDL Cholesterol 32 mg/dL (60-100); LDL Cholesterol Calculated 41 mg/dL (50-129); LDL HDL Ratio 1.28 RATIO (0.00-3.22); Osmolality Calculated 295 mOsm/kg (285-295); Sodium 139 mmol/L (136-145); Thyroid Stimulating Hormone 0.66 uIU/mL (0.27-4.20); Total Bilirubin 0.4 mg/dL (0.15-1.2); Total Protein 7.9 g/dL (6.6-8.7); Triglycerides 293 mg/dL (0-150)
[2024-04-13 10:17] LABS: Anion Gap 17.3 (5-19); Potassium 4.3 mmol/L (3.5-5.1)
[2024-04-13 11:17] LABS: Free T4 Free Thyroxine 1.69 ng/dL (0.82-1.77)
[2024-04-13 11:42] LABS: 25 Hydroxy Vitamin D 29 ng/mL (30-100)
== END 2024-04-13 09:10 | disposition home or self-care (01) ==
LOC: LAB 09:12
PROVIDERS: PCP Nurse Practitioner Family; Visit Provider Internal Medicine
DX: E11.9 Type 2 diabetes mellitus without complications (principal); E78.1 Pure hyperglyceridemia; M81.0 Age-related osteoporosis without current pathological fracture; L40.0 Psoriasis vulgaris
CPT/HCPCS: 36415; 80053; 80061; 82306; 83036; 84439; 84443

== ENCOUNTER → 2024-04-17 09:41 | Outpatient (BNVA) | payer MEDICARE, SELFPAY | PROVIDERS: PCP Nurse Practitioner Family; Visit Provider Internal Medicine | DX: E11.9 Type 2 diabetes mellitus without complications (principal); E78.1 Pure hyperglyceridemia; M81.0 Age-related osteoporosis without current pathological fracture | CPT/HCPCS: 82043 ==

== ENCOUNTER → 2024-04-23 07:38 | Outpatient (BNVA) | payer MEDICARE, SELFPAY | PROVIDERS: PCP Nurse Practitioner Family; Visit Provider Internal Medicine | DX: E11.9 Type 2 diabetes mellitus without complications (principal); E03.9 Hypothyroidism, unspecified; L40.0 Psoriasis vulgaris; E78.1 Pure hyperglyceridemia; Z15.89 Genetic susceptibility to other disease; M81.0 Age-related osteoporosis without current pathological fracture; Z83.41 Family history of multiple endocrine neoplasia [MEN] syndrome; Z79.4 Long term (current) use of insulin; Z79.84 Long term (current) use of oral hypoglycemic drugs; Z79.890 Hormone replacement therapy | CPT/HCPCS: 99214 ==

== ENCOUNTER 2024-06-21 11:00 | Outpatient (CLI) | payer MEDICARE, SELFPAY ==
--- NOTE | 2024-06-21 11:00 | MR_ITS ---
WS: [id number] MRI ABDOMEN WITH AND WITHOUT CONTRAST. COMPARISON: MRI 11/26/2021, CT 07/13/2023, 01/11/2023 and 03/23/2021 Multiplanar, multisequence imaging is performed with and without contrast. MultiHance 20 mL. Large amount of artifact obscuring the RIGHT retroperitoneum from patient's spinal stimulator battery . Liver: Moderate diffuse hepatic steatosis. Liver is normal size. No bile duct dilatation. No enhancin g mass. Gallbladder: Negative. Pancreas: Normal size pancreas. Previously described small cystic lesion in the uncinate process is n ot reidentified. Pancreatic duct is normal. No masses. Adrenal glands: Negative. Spleen: Normal. RIGHT kidney: Reidentified is the indeterminate mass extending exophytically from the mid RIGHT kidne y. Mass is reidentified with no increase in size or signal intensity over multiple prior years. There does appear to be a slight enhancement. Lesion is 8 mm and stable since at least 2020. Additional cy st from the kidney is partially obscured. LEFT kidney: Additional cyst. No enhancing mass. Normal size aorta. No adenopathy. No ascites. MR/MR abdomen wo/w con* [id number] IMPRESSION: 1. Previously described septated cystic mass in the uncinate process of the pa ncreas is not identified today. 2. Long-term stability hyperdense, minimally enhancing 8 mm mass from the mid RIGHT kidney. With the slight enhancement cannot exclude very early renal cell neoplasm but this mass has been stable since at least 2020. 3. Bilateral renal cysts. 4. Diffuse moderate hepatic steatosis.
[2024-06-21] MEDS: gadobenate dimeglumine 20 mL vial 18 ML IV (14:39)
== END 2024-06-21 11:01 | disposition home or self-care (01) ==
PROVIDERS: PCP Nurse Practitioner Family; Visit Provider Internal Medicine Medical Oncology
DX: N28.1 Cyst of kidney, acquired (principal); N28.89 Other specified disorders of kidney and ureter; D05.12 Intraductal carcinoma in situ of left breast; K76.0 Fatty (change of) liver, not elsewhere classified
CPT/HCPCS: 74183; A9577

== ENCOUNTER 2024-08-13 11:32 | Outpatient (CLI) | payer MEDICARE, SELFPAY ==
[2024-08-13 12:38] LABS: Estmated Average Glucose 131; Hemoglobin A1C 6.2 % (4.0-6.0)
[2024-08-13 12:43] LABS: Creatinine Urine, Random 104 mg/dL (28-217); Microalbum Creatinine Ratio Ur 10 mg/dL (0-20); Microalbumin Random Urine 1 ug/dL (0-20)
[2024-08-13 12:53] LABS: Alanine Aminotransferase 23 U/L (0-33); Albumin Level 4.4 g/dL (3.5-5.2); Alkaline Phosphatase 98 U/L (35-105); Aspartate Amino Transferase 33 U/L (0-32); Blood Urea Nitrogen 18 mg/dL (8-23); Calcium 9.6 mg/dL (8.5-10.5); Carbon Dioxide 23 mmol/L (22-29); Chloride 103 mmol/L (98-107); Chol HDL Ratio 4.11 mg/dL (0.0-4.40); Cholesterol 148 mg/dL (0-200); Free T4 Free Thyroxine 1.22 ng/dL (0.82-1.77); Globulin 3.8 g/dL (1.3-4.6); Glucose 81 mg/dL (65-115); HDL Cholesterol 36 mg/dL (60-100); LDL Cholesterol Calculated 60 mg/dL (50-129); LDL HDL Ratio 1.67 RATIO (0.00-3.22); Osmolality Calculated 287 mOsm/kg (285-295); Sodium 138 mmol/L (136-145); Thyroid Stimulating Hormone 2.68 uIU/mL (0.27-4.20); Total Bilirubin 0.5 mg/dL (0.15-1.2); Total Protein 8.2 g/dL (6.6-8.7); Triglycerides 259 mg/dL (0-150)
[2024-08-13 12:58] LABS: Anion Gap 16.1 (5-19); Potassium 4.1 mmol/L (3.5-5.1)
== END 2024-08-13 11:33 | disposition home or self-care (01) ==
LOC: LAB 11:36
PROVIDERS: PCP Nurse Practitioner Family; Visit Provider Internal Medicine
DX: E11.9 Type 2 diabetes mellitus without complications (principal); E03.9 Hypothyroidism, unspecified; L40.0 Psoriasis vulgaris
CPT/HCPCS: 36415; 80053; 80061; 82044; 83036; 84439; 84443

== ENCOUNTER → 2024-08-20 08:24 | Outpatient (BNVA) | payer MEDICARE, SELFPAY | PROVIDERS: PCP Nurse Practitioner Family; Visit Provider Internal Medicine | DX: E11.9 Type 2 diabetes mellitus without complications (principal); E78.1 Pure hyperglyceridemia; E03.9 Hypothyroidism, unspecified; Z15.89 Genetic susceptibility to other disease; M81.0 Age-related osteoporosis without current pathological fracture; Z83.41 Family history of multiple endocrine neoplasia [MEN] syndrome; Z79.890 Hormone replacement therapy; Z79.4 Long term (current) use of insulin; Z79.84 Long term (current) use of oral hypoglycemic drugs | CPT/HCPCS: 99214 ==

== ENCOUNTER 2024-08-23 11:05 | Oncology outpatient (recurring) (ONCR) | payer MEDICARE, SELFPAY ==
[2024-08-23 12:18] LABS: Basophils % 0.4 %; Eosinophils # 0.3 10^3/uL (0.0-0.8); Eosinophils % 2.8 %; Hematocrit 42.4 % (36-47); Lymphocytes # 1.9 10^3/uL (0.8-4.8); Lymphocytes % 21.2 %; Mean Corpuscular HGB Conc 33.3 g/dL (30-55); Mean Corpuscular Hemoglobin 29.4 pg (27-33); Mean Corpuscular Volume 88.3 fl (85-98); Mean Platelet Volume 10.4 fL (7.4-10.4); Monocytes # 0.7 10^3/uL (0.2-0.9); Monocytes % 8.1 %; Neutrophils % 66.8 %; Nucleated Red Blood Cells % 0 %; Platelet Count 270 10^3/cmm (157-399); Red Cell Distribution Width 12.8 % (12.1-15.1); White Blood Count 8.99 10^3/uL (3.29-11.43)
[2024-08-23 12:38] LABS: Alanine Aminotransferase 20 U/L (0-33); Albumin Level 4.5 g/dL (3.5-5.2); Alkaline Phosphatase 95 U/L (35-105); Aspartate Amino Transferase 29 U/L (0-32); Blood Urea Nitrogen 21 mg/dL (8-23); Calcium 9.7 mg/dL (8.5-10.5); Carbon Dioxide 25 mmol/L (22-29); Chloride 99 mmol/L (98-107); Globulin 3.5 g/dL (1.3-4.6); Glomerular Filtration Rate 44.5 mL/min (90-130); Glucose 122 mg/dL (65-115); Osmolality Calculated 284 mOsm/kg (285-295); Sodium 135 mmol/L (136-145); Total Bilirubin 0.6 mg/dL (0.15-1.2)
== END 2024-09-11 23:59 | disposition home or self-care (01) ==
PROVIDERS: Nurse Practitioner Family; PCP Nurse Practitioner Family; Visit Provider Internal Medicine Medical Oncology
DX: N28.89 Other specified disorders of kidney and ureter (principal); Z79.899 Other long term (current) drug therapy; Z86.000 Personal history of in-situ neoplasm of breast
CPT/HCPCS: 36415; 80053; 85025; 99214

== ENCOUNTER 2024-10-08 14:41 | Outpatient (CLI) | payer MEDICARE, SELFPAY ==
--- NOTE | 2024-10-08 15:30 | XR_ITS ---
WS: [id number] SCREENING DEXA SCAN [employer] CLINICAL INFORMATION: osteoporosis COMPARISON: 2020 FINDINGS: The LEFT forearm bone mineral density measures 0.74. This corresponds to a T score score of -1.6 and Z score of 0.2. Left femoral neck bone mineral density measures 0.892 g/cm2. This corresponds to a T score of -0.9 an d Z score of 0.2. Right femoral neck bone mineral density measures 0.809 g/cm2. This corresponds to a T score -1.6of an d Z score of -0.4. Mean femoral neck bone mineral density measures 0.850 g/cm2. This corresponds to a T score of -1.2 an d Z score of -0.1. XR/XR DEXA axial skeleton* [id number] IMPRESSION: Osteopenia LEFT forearm. Osteopenia femoral necks. Patient's FRAX calculated 10 year probability for major osteoporotic fracture i s 23.8% and osteoporotic hip fracture is 6.5%. LEFT forearm bone mineral density decreased -4.4% Femoral bone mineral density decreased -0.1%
== END 2024-10-08 14:42 | disposition home or self-care (01) ==
LOC: RAD 14:42
PROVIDERS: PCP Nurse Practitioner Family; Visit Provider Internal Medicine
DX: M81.0 Age-related osteoporosis without current pathological fracture (principal); M85.832 Other specified disorders of bone density and structure, left forearm; M85.852 Other specified disorders of bone density and structure, left thigh; M85.851 Other specified disorders of bone density and structure, right thigh
CPT/HCPCS: 77080

== ENCOUNTER 2024-11-13 09:03 | Outpatient (CLI) | payer MEDICARE, SELFPAY ==
[2024-11-13 09:33] LABS: Total Volume Urine 1000 ml
[2024-11-13 09:36] LABS: Urine Creatinine 149 mg/dL (28-217)
== END 2024-11-13 09:04 | disposition home or self-care (01) ==
LOC: LAB 09:06
PROVIDERS: PCP Family Medicine; Visit Provider Internal Medicine
DX: E11.9 Type 2 diabetes mellitus without complications (principal); E78.1 Pure hyperglyceridemia; E03.9 Hypothyroidism, unspecified; Z15.89 Genetic susceptibility to other disease; M81.0 Age-related osteoporosis without current pathological fracture
CPT/HCPCS: 82384; 82570; 83835

== ENCOUNTER → 2024-11-19 09:28 | Outpatient (BNVA) | payer MEDICARE, SELFPAY | PROVIDERS: PCP Family Medicine; Referring Provider Internal Medicine; Visit Provider Internal Medicine | DX: E11.9 Type 2 diabetes mellitus without complications (principal); E78.1 Pure hyperglyceridemia; E03.9 Hypothyroidism, unspecified; L40.0 Psoriasis vulgaris; M81.0 Age-related osteoporosis without current pathological fracture; Z15.89 Genetic susceptibility to other disease; Z83.41 Family history of multiple endocrine neoplasia [MEN] syndrome | CPT/HCPCS: 36415; 80053; 80061; 82306; 83036; 84439; 84443 ==

== ENCOUNTER 2024-11-20 15:01 | Outpatient (CLI) | payer MEDICARE, SELFPAY ==
[2024-11-20 15:34] LABS: Creatinine Urine, Random 88 mg/dL (28-217); Microalbumin Random Urine 5 ug/dL (0-20)
[2024-11-20 15:35] LABS: Microalbum Creatinine Ratio Ur 57 mg/dL (0-20)
== END 2024-11-20 15:02 | disposition home or self-care (01) ==
LOC: LAB 15:03
PROVIDERS: PCP Family Medicine; Visit Provider Internal Medicine
DX: E11.9 Type 2 diabetes mellitus without complications (principal); E78.1 Pure hyperglyceridemia; E03.9 Hypothyroidism, unspecified; Z15.89 Genetic susceptibility to other disease; M81.0 Age-related osteoporosis without current pathological fracture; Z83.41 Family history of multiple endocrine neoplasia [MEN] syndrome
CPT/HCPCS: 82044

== ENCOUNTER 2025-01-10 09:16 | Outpatient (CLI) | payer MEDICARE, SELFPAY ==
[2025-01-10 10:14] LABS: 25 Hydroxy Vitamin D 27 ng/mL (30-100); Thyroid Stimulating Hormone 0.12 uIU/mL (0.27-4.20)
[2025-01-10 11:12] LABS: Free T4 Free Thyroxine 1.46 ng/dL (0.82-1.77)
== END 2025-01-10 09:17 | disposition home or self-care (01) ==
PROVIDERS: PCP Family Medicine; Visit Provider Internal Medicine
DX: L40.0 Psoriasis vulgaris (principal); E11.9 Type 2 diabetes mellitus without complications
CPT/HCPCS: 82306; 84439; 84443

== ENCOUNTER → 2025-01-14 08:01 | Outpatient (BNVA) | payer MEDICARE, SELFPAY | PROVIDERS: PCP Family Medicine; Referring Provider Internal Medicine; Visit Provider Internal Medicine | DX: E11.9 Type 2 diabetes mellitus without complications (principal); Z15.89 Genetic susceptibility to other disease; E78.1 Pure hyperglyceridemia; E03.9 Hypothyroidism, unspecified; Z83.41 Family history of multiple endocrine neoplasia [MEN] syndrome; M81.0 Age-related osteoporosis without current pathological fracture; L40.0 Psoriasis vulgaris | CPT/HCPCS: 99214 ==

== ENCOUNTER 2025-02-28 12:58 | Oncology outpatient (recurring) (ONCR) | payer MEDICARE, SELFPAY ==
[2025-02-28 13:47] LABS: Estmated Average Glucose 117; Hemoglobin A1C 5.7 % (4.0-6.0)
[2025-02-28 13:58] LABS: Creatinine Urine, Random 23 mg/dL (28-217); Microalbumin Random Urine 1 ug/dL (0-20)
[2025-02-28 14:05] LABS: Microalbum Creatinine Ratio Ur 43 mg/dL (0-20)
[2025-02-28 14:20] LABS: 25 Hydroxy Vitamin D 28 ng/mL (30-100); Alanine Aminotransferase 8 U/L (0-33); Albumin Level 4.3 g/dL (3.5-5.2); Alkaline Phosphatase 77 U/L (35-105); Anion Gap 16.6 (5-19); Aspartate Amino Transferase 18 U/L (0-32); Blood Urea Nitrogen 16 mg/dL (8-23); Calcium 9.2 mg/dL (8.5-10.5); Carbon Dioxide 23 mmol/L (22-29); Chloride 107 mmol/L (98-107); Cholesterol 145 mg/dL (0-200); Creatinine Clr Calc Pharmacy 45.7014; Globulin 2.9 g/dL (1.3-4.6); Glomerular Filtration Rate 49.1 mL/min (90-130); Glucose 91 mg/dL (65-115); HDL Cholesterol 44 mg/dL (60-100); LDL Cholesterol Calculated 55 mg/dL (50-129); LDL HDL Ratio 1.25 RATIO (0.00-3.22); Osmolality Calculated 295 mOsm/kg (285-295); Potassium 4.6 mmol/L (3.5-5.1); Sodium 142 mmol/L (136-145); Thyroid Stimulating Hormone 2.12 uIU/mL (0.27-4.20); Total Bilirubin 0.3 mg/dL (0.15-1.2); Total Protein 7.2 g/dL (6.6-8.7); Triglycerides 231 mg/dL (0-150)
[2025-02-28 14:54] LABS: Free T4 Free Thyroxine 1.31 ng/dL (0.82-1.77)
== END 2025-03-11 23:59 | disposition home or self-care (01) ==
PROVIDERS: Internal Medicine; PCP Family Medicine; Visit Provider Internal Medicine Medical Oncology
DX: Z08 Encounter for follow-up examination after completed treatment for malignant neoplasm (principal); Z85.3 Personal history of malignant neoplasm of breast; L40.0 Psoriasis vulgaris; E11.9 Type 2 diabetes mellitus without complications; N28.89 Other specified disorders of kidney and ureter; E78.1 Pure hyperglyceridemia; E03.9 Hypothyroidism, unspecified; Z15.89 Genetic susceptibility to other disease; M81.0 Age-related osteoporosis without current pathological fracture; Z83.41 Family history of multiple endocrine neoplasia [MEN] syndrome; Z90.13 Acquired absence of bilateral breasts and nipples; F41.9 Anxiety disorder, unspecified; F40.240 Claustrophobia; Z79.899 Other long term (current) drug therapy
CPT/HCPCS: 36415; 80053; 80061; 82044; 82306; 83036; 84439; 84443; 99213

== ENCOUNTER 2025-04-03 09:47 | Oncology outpatient (recurring) (ONCR) | payer MEDICARE, SELFPAY ==
--- NOTE | 2025-03-14 16:00 | MRR_ITS ---
PROCEDURE INFORMATION: Exam: MR Abdomen Without and With Contrast; Kidneys Exam date and time: 03/14/2025 4:24 PM Age: 69 years old Clinical indication: Condition or disease; Kidney or ureter condition; Other: Renal mass; Prior surgery; Surgery date: 6+ months; Surgery type: Spinal stimulator , heart valve, hysterectomy; Additional info: Leukocytosis, Dr carlson would like this done on 03/14/25 TECHNIQUE: Imaging protocol: Magnetic resonance imaging of the abdomen without and with contrast. Exam focused on the kidneys. Contrast material: MULTIHANCE; Contrast volume: 16 ml; Contrast route: INTRAVENOUS (IV); COMPARISON: 1. MR abdomen wo/w con* [id number] 06/21/2024 11:[address] abdomen pelvis wo con [id number] 07/13/2023 1:16 PM FINDINGS: Tubes, catheters and devices: Susceptibility artifact from a right posterior abdominal wall neurostimulator limits assessment of surrounding structures. Liver: Moderate diffuse hepatic steatosis is again seen. Normal liver size. No suspicious liver lesion. Kidneys and ureters: Stable exophytic 8 mm lesion in the right mid kidney which appears mildly hyperintense on T2 weighted images and also has intrinsic T1 signal (for example series 700 image 59). Assessment for enhancement is somewhat limited due to intrinsic T1 signal. Minimal enhancement if any. Bilateral renal cysts also appear unchanged. Intraperitoneal space: No free fluid. Lymph nodes: No enlarged nodes. Bones/joints: Unremarkable. No suspicious lesions. Soft tissues: Unremarkable. MR/MR abdomen wo/w con* [id number] IMPRESSION: 1. No significant interval change in an 8 mm exophytic mass along the right mid kidney with limited assessment for enhancement due to intrinsic T1 signal. This could represent a small hemorrhagic/proteinaceous cyst, with underlying renal neoplasm considered less likely given long-term stability. Consider continued follow-up imaging within 12 months to further document stability. 2. Remainder stable.
[2025-03-14] MEDS: gadobenate dimeglumine 20 mL vial 16 ML IV (17:08)
[2025-04-03 10:29] LABS: Hematocrit 40.0 % (36-47); Hemoglobin 13.30 g/dL (11.27-16.99); Mean Corpuscular HGB Conc 33.3 g/dL (30-55); Mean Corpuscular Hemoglobin 28.9 pg (27-33); Mean Corpuscular Volume 87.0 fl (85-98); Nucleated Red Blood Cells % 0 %; Platelet Count 282 10^3/cmm (157-399); Red Blood Count 4.60 10^6/uL (3.85-5.65); White Blood Count 8.59 10^3/uL (3.29-11.43)
[2025-04-03 10:47] LABS: Estmated Average Glucose 114; Hemoglobin A1C 5.6 % (4.0-6.0)
[2025-04-03 11:05] LABS: Creatinine Urine, Random 17 mg/dL (28-217)
[2025-04-03 11:08] LABS: Microalbum Creatinine Ratio Ur 59 mg/dL (0-20)
[2025-04-03 11:22] LABS: Alanine Aminotransferase 16 U/L (0-33); Albumin Level 4.4 g/dL (3.5-5.2); Alkaline Phosphatase 82 U/L (35-105); Anion Gap 16.0 (5-19); Aspartate Amino Transferase 24 U/L (0-32); Blood Urea Nitrogen 22 mg/dL (8-23); Calcium 9.8 mg/dL (8.5-10.5); Carbon Dioxide 24 mmol/L (22-29); Chloride 102 mmol/L (98-107); Cholesterol 153 mg/dL (0-200); Globulin 3.1 g/dL (1.3-4.6); Glucose 88 mg/dL (65-115); HDL Cholesterol 43 mg/dL (60-100); Osmolality Calculated 289 mOsm/kg (285-295); Potassium 4.0 mmol/L (3.5-5.1); Sodium 138 mmol/L (136-145); Thyroid Stimulating Hormone 9.59 uIU/mL (0.27-4.20); Total Protein 7.5 g/dL (6.6-8.7); Triglycerides 226 mg/dL (0-150)
[2025-04-03 12:17] LABS: Free T4 Free Thyroxine 1.07 ng/dL (0.82-1.77)
== END 2025-04-11 23:59 | disposition home or self-care (01) ==
PROVIDERS: Internal Medicine; Nurse Practitioner Family; PCP Family Medicine; Visit Provider Internal Medicine Medical Oncology
DX: Z53.9 Procedure and treatment not carried out, unspecified reason; Z08 Encounter for follow-up examination after completed treatment for malignant neoplasm; Z85.3 Personal history of malignant neoplasm of breast; L40.0 Psoriasis vulgaris; Z15.89 Genetic susceptibility to other disease; N28.89 Other specified disorders of kidney and ureter; E78.1 Pure hyperglyceridemia; E11.9 Type 2 diabetes mellitus without complications; E03.9 Hypothyroidism, unspecified; Z83.41 Family history of multiple endocrine neoplasia [MEN] syndrome; M81.0 Age-related osteoporosis without current pathological fracture; Z90.13 Acquired absence of bilateral breasts and nipples; F41.9 Anxiety disorder, unspecified; F40.240 Claustrophobia; Z79.899 Other long term (current) drug therapy
CPT/HCPCS: 36415; 74183; 80053; 80061; 82044; 82306; 83036; 84439; 84443; 85025; 99213; A9577

== ENCOUNTER → 2025-05-08 09:20 | Outpatient (BNVA) | payer MEDICARE, SELFPAY | PROVIDERS: PCP Family Medicine; Visit Provider Internal Medicine | DX: E11.9 Type 2 diabetes mellitus without complications (principal); E78.1 Pure hyperglyceridemia; E03.9 Hypothyroidism, unspecified | CPT/HCPCS: 99214 ==